=== PATIENT | female | born 1980 ===

== ENCOUNTER 2023-06-01 09:30 | Outpatient (CLI) | payer OTHER, SELFPAY ==
[2023-06-01 10:56] LABS: Beta HCG Quantitative < 2.39 mIU/ML
== END 2023-06-01 09:31 | disposition home or self-care (01) ==
LOC: ANHLAB 09:33
PROVIDERS: Visit Provider Student in an Organized Health Care Education/Training Program
DX: N92.6 Irregular menstruation, unspecified (principal)
CPT/HCPCS: 36415; 84702